=== PATIENT | female | born 1940 ===

== ENCOUNTER 2017-01-09 22:27 | Emergency (ER) | payer MEDICARE, OTHER ==
[2017-01-09] MEDS ORDERED: Aspirin Low Dose CHEW TAB* 81 MG PO ONE (23:46)
--- NOTE | 2017-01-10 00:29 | ED ---
Emely Kruse Rebecca, scribed for Jan Donald MD on 01/09/17 at 2348 . Back Pain - HPI Summary HPI Summary: Pt is a 76 y/o F who presents to ED c/o L rear shoulder pain. Sx began suddenly between 2129 and 0 while watching television. Initially, pain was severe and lasted for approximately an hour, until about 2230. Pain was still present while en route to [facility] but was resolved upon arrival. Sx aggravated by nothing , alleviated by Tums and belching. Pt additionally c/o diaphoresis and belching during the episode of pain. Prior episodes of R shoulder pain, but not on the L. - History of Current Complaint Chief Complaint: EDBackInjuryPain Stated Complaint: PAIN IN SHOULDER AND ARM Time Seen by Provider: 01/09/17 23:39 Hx Obtained From: Patient Onset/Duration: Sudden Onset, Lasting Hours - 1 hour, Resolved Timing: Intermittent, Lasting Hours - 1 hour Back Pain Location: Is Discrete @ - L rear shoulder Severity Initially: Severe Severity Currently: None Pain Intensity: 0 Pain Scale Used: 0-10 Numeric Aggravating Symptom(s): Nothing Alleviating Symptom(s): OTC Meds - Tums Associated Signs And Symptoms: Positive: Negative - Allergies/Home Medications Allergies/Adverse Reactions: Allergies Allergy/AdvReac Type Severity Reaction Status Date / Time No Known Allergies Allergy Verified 01/09/17 22:47 PMH/Surg Hx/FS Hx/Imm Hx Cardiovascular History: Reports: Hx Hypertension, Other Cardiovascular Problems/ Disorders - EXTRA BEAT OF HER HEART GI History: Reports: Hx Gastroesophageal Reflux Disease, Hx Hiatal Hernia Musculoskeletal History: Reports: Hx Arthritis - FINGERS Sensory History: Reports: Hx Cataracts, Hx Contacts or Glasses - GLASSES Denies: Hx Hearing Aid Opthamlomology History: Reports: Hx Cataracts, Hx Contacts or Glasses - GLASSES Neurological History: Reports: Hx Seizures - 3-4 YEARS AGO HAPPENED ONLY X2 NO MORE EPISODES - Surgical History Surgery Procedure, Year, and Place: COLONOSCOPIES Infectious Disease History: No Infectious Disease History: Denies: Traveled Outside the [place] in Last 30 Days - Family History Known Family History: Positive: Other - Cataract - Social History Alcohol Use: Rare Substance Use Type: Reports: None Smoking Status (MU): Never Smoked Tobacco Review of Systems Negative: Fever Positive: Arthralgia - L rear shoulder pain - resolved All Other Systems Reviewed And Are Negative: Yes Physical Exam Triage Information Reviewed: Yes Vital Signs On Initial Exam: Initial Vitals Temp Pulse Resp BP Pulse Ox 97.6 F 64 16 197/63 95 01/09/17 22:49 01/09/17 22:49 01/09/17 22:49 01/09/17 22:49 01/09/17 22:49 Vital Signs Reviewed: Yes Appearance: Positive: Well-Appearing, No Pain Distress - anxious Skin: Positive: Warm Head/Face: Positive: Normal Head/Face Inspection Eyes: Positive: ANGELITA ENT: Positive: Hearing grossly normal Neck: Positive: Supple Respiratory/Lung Sounds: Positive: Clear to Auscultation, Breath Sounds Present Cardiovascular: Positive: RRR Abdomen Description: Positive: Nontender, Soft Bowel Sounds: Positive: Present Musculoskeletal: Positive: Strength/ROM Intact. Negative: Edema Left, Edema Right Neurological: Positive: Alert, Oriented to Person Place, Time Psychiatric: Positive: Affect/Mood Appropriate - [place] Coma Scale Coma Scale Total: 15 Diagnostics - Vital Signs Vital Signs Temp Pulse Resp BP Pulse Ox 01/09/17 22:49 97.6 F 64 16 197/63 95 - Laboratory Result Diagrams: 01/10/17 01:10 01/10/17 01:10 Lab Statement: Any lab studies that have been ordered have been reviewed, and results considered in the medical decision making process. Re-Evaluation - Re-Evaluation First Eval Comment: pt pain free, does not want to wait for repeat troponin, pt advised of risks and signed out ama Back Pain Course/Dx - Course Assessment/Plan: Pt is a 76 y/o F who presents to ED c/o L rear shoulder pain. Sx began suddenly between 2129 and 2199 while watching television. Initially, pain was severe and lasted for approximately an hour, until about 2230. Pain was still present while en route to [facility] but was resolved upon arrival. Sx aggravated by nothing, alleviated by Tums and belching. Pt additionally c/o diaphoresis and belching during the episode of pain. Prior episodes of R shoulder pain, but not on the L. Troponin of 0.00. Pt left AMA. - Diagnoses Provider Diagnoses: Chest pain Discharge - Discharge Plan Condition: Guarded Disposition: AGAINST MEDICAL ADVICE Referrals: Jan Mcclain MD [Primary Care Provider] - The documentation as recorded by the Emely mendoza Rebecca accurately reflects the service I personally performed and the decisions made by me, Jan Donald MD.
[2017-01-10 01:29] LABS: Hematocrit 42 % (35-47); Hemoglobin 14.2 g/dl (12.0-16.0); Mean Corpuscular HGB Conc 34 g/dl (31-36); Mean Corpuscular Hemoglobin 32 pg (27-31); Mean Corpuscular Volume 94 fL (80-97); Mean Platelet Volume 8 um3 (7.4-10.4); Red Blood Count 4.42 10^6/ul (4.0-5.4); Red Cell Distribution Width 12 % (10.5-15)
[2017-01-10 01:40] LABS: Albumin 3.8 g/dL (3.2-5.2); Calcium 9.5 mg/dL (8.6-10.3); EGFR African American 86.7 (>60); EGFR Non-African American 67.4 (>60); Globulin 3.6 g/dL (2-4); Potassium 3.7 mmol/L (3.5-5.0); Total Bilirubin 0.5 mg/dL (0.2-1.0); Total Protein 7.4 g/dL (6.4-8.9)
[2017-01-10 02:18] VITALS: BP 147/56
--- NOTE | 2017-01-10 07:37 | RAD ---
INDICATION: Chest pain COMPARISON: None TECHNIQUE: PA and lateral dual-energy views were obtained. FINDINGS: Bones/Soft Tissues: There are no acute bony findings. Cardiomediastinal: The cardiomediastinal silhouette is normal. Lungs: There is minimal lingular scarring or atelectasis. The lungs are otherwise clear. Pleura: There are no pleural effusions. Other: None IMPRESSION: NO ACTIVE DISEASE.
== END 2017-01-10 02:17 | disposition left against medical advice (07) ==
LOC: ED 22:27
DX: M25.512 Pain in left shoulder (principal); R07.9 Chest pain, unspecified
CPT/HCPCS: 36415; 71020; 80053; 83605; 84484; 85025; 93005; 99283